=== PATIENT | male | born 1965 ===

== ENCOUNTER 2018-09-07 16:44 | Inpatient (IN) | payer OTHER ==
[2018-09-07] MEDS: HumaLOG SUB-Q SCH (22:11)
--- NOTE | 2018-09-07 23:08 | Consultation ---
History of Present Illness - Reason for Consult Consult date: 09/07/18 - History of Present Illness 53 year old man with history of hypertension, diabetes, CAD, CHF, CVA, hyperlipidemia , gout is being evaluated for medical management. He is admitted for SI Review of systems Constitutional: no weight loss, chills, fever Ears, eyes, nose, mouth and throat: no nasal congestion, no nasal discharge, no sinus pressure, no vision change, no red eye. Neck: No neck pain or rigidity. Cardiovascular: no palpitations, chest pain Respiratory: no cough, shortness of breath Gastrointestinal: no hematochezia, abdominal pain Genitourinary : no frequency , no hematuria Musculoskeletal: no joint swelling or muscle ache Integumentary: no rash, no pruritis Neurological: no parathesias, no focal weakness Endocrine: no cold or heat intolerance, no polyuria or polydipsia Hematologic/Lymphatic: no easy bruising, no easy bleeding, no gland swelling Allergic/Immunologic: no urticaria, no angioedema. PAST MEDICAL HISTORY:hypertension, diabetes, CAD, CHF, CVA, hyperlipidemia , gout, CKD PAST SURGICAL HISTORY: AICD SOCIAL HISTORY: Denies alcohol, drugs, tobacco FAMILY HISTORY: Hypertension Medications and Allergies Allergies Allergy/AdvReac Type Severity Reaction Status Date / Time No Known Allergies Allergy Unverified 09/07/18 17:01 Home Medications Medication Instructions Recorded Confirmed Last Taken Type Allopurinol [Zyloprim] 0.5 mg PO QPM 09/07/18 09/07/18 Unknown History Furosemide [Lasix TAB] 40 mg PO DAILY 09/07/18 09/07/18 Unknown History Glimepiride [Amaryl] 4 mg PO DAILY 09/07/18 09/07/18 Unknown History Lisinopril [Zestril TAB] 10 mg PO DAILY 09/07/18 09/07/18 Unknown History Metoclopramide [Reglan TAB] 5 mg pe PO QID 09/07/18 09/07/18 Unknown History Metoprolol Xl [Metoprolol 25 mg PO DAILY 09/07/18 09/07/18 Unknown History SUCCINATE ER TAB] Simvastatin 40 mg PO DAILY 09/07/18 09/07/18 Unknown History Warfarin 5 mg PO DAILY 09/07/18 09/07/18 Unknown History busPIRone 7.5 mg PO BID 09/07/18 09/07/18 Unknown History metFORMIN 500 mg PO BID 09/07/18 09/07/18 Unknown History metOLazone [Metolazone] 10 mg pe PO DAILY 09/07/18 09/07/18 Unknown History Exam - Physical Exam Narrative exam: General Apperance: The patient lying in bed, breathing comfortable HEENT: Normocephalic, atraumatic. Pupils equally round and reactive to light, EOMI, no sclericterus or JVD or thyromegaly or nodule. , no carotid bruit, mucous membranes moist, no exudate or erythema Heart: S1-S2, regular is rhythm Lungs: Clear to auscultation bilaterally, breathing comfortable Abdomen: Positive bowel sounds, soft, nontender, nondistended, no organomegaly Extremities: No edema cyanosis clubbing Skin: no rash, nodule, warm and dry Neuro: cranial nerves 2-12 intact, speech is fluent, motor/sensory intact Results - Labs CBC & Chem 7: 09/07/18 23:41 09/07/18 23:41 Labs: Abnormal lab results 09/07/18 Range/Units 21:37 POC Glucose 256 H (70-105) Assessment and Plan Assessment hypertension diabetes CAD CHF, stable CKD CVA hyperlipidemia gout Plan Continue appropiate medications Check fingersticks, start sliding scale Medicaions need to be reconciled Addendum Patient with relative hypotension, hold antihypertensives
[2018-09-07] MEDS ORDERED: D50W (25GM) Syringe IV PRN (23:16)
[2018-09-08 00:13] LABS: Basophils % (Auto) 0.4 % (0.0-1.8); Eosinophils % (Auto) 0.8 % (0.0-4.3); Hematocrit 41.4 % (35.5-45.6); Lymphocytes # (Auto) 0.8 K/mm3 (1.2-5.4); Lymphocytes % (Auto) 12.9 % (13.4-35.0); Mean Corpuscular HGB Conc 32 % (32-34); Mean Corpuscular Volume 75 fl (84-94); Monocytes # (Auto) 0.5 K/mm3 (0.0-0.8); Monocytes % (Auto) 8.1 % (0.0-7.3); Platelet Count 155 K/mm3 (140-440); Red Blood Count 5.53 M/mm3 (3.65-5.03)
[2018-09-08 00:20] LABS: INR 1.62 (0.87-1.13)
[2018-09-08 00:21] LABS: Partial Thromboplastin Time 29.3 Sec. (24.2-36.6)
[2018-09-08 00:40] LABS: Red Cell Distribution Width 24.3 % (13.2-15.2)
[2018-09-08] MEDS ORDERED: KIONEX PO ONE (01:33)
[2018-09-08 07:54] LABS: Calcium 10.2 mg/dL (8.4-10.2)
--- NOTE | 2018-09-08 08:28 | History and Physical Report ---
GP History & Physical - History of Present Illness Date of admission: 09/07/18 Date of Examination: 09/08/18 Reason for Admission: Danger to self, Severe anxiety/depression Chief Complaint: I am losing my mind. History of Present Illness: The patient is 53 year old disabled man with history of hypertension, diabetes, CAD, CHF, CVA, HLD, diabetic retinopathy and vision loss. He present with severely depressed mood and suicidal thoughts. In my interview with the patient he reports that he is losing his mind, losing his vision, stressed by multiple medical problems including strokes, heart rafa cks and vision loss. He reports entertaining suicide thoughts. He has decreased energy, interests, sleep and appetite. He denies hallucinations, HI or paranoia. Legal Status: Voluntary Patient Problems: Current Active Problems MDD (major depressive disorder), single episode, severe , no psychosis (Acute) Reaction to Hospitalization: Accepting Substance History - Substance History Drug Use: none Hx Tobacco Use: No Alcohol Use: No Past psychiatric history - Past Medical History Past Medical History: acute CO, CAD, diabetes, hypertension, hyperlipidemia, stroke - past Psychiatric treatment and history psychiatric treatment history: No past psych history - Social History Social history: (lives with a friend, no chilodhood abuse, completed high school, disabled, no legal problems and no access to guns) Review of Systems All systems: negative Psychiatric: memory loss, insomnia, change in appetite, suicidal ideation, depression, anhedonia Results - Results Labs/Vitals: Laboratory Last Values WBC 5.9 K/mm3 (4.5-11.0) 09/07/18 23:41 RBC 5.53 M/mm3 (3.65-5.03) H 09/07/18 23:41 Hgb 13.0 gm/dl (11.8-15.2) 09/07/18 23:41 Hct 41.4 % (35.5-45.6) 09/07/18 23:41 MCV 75 fl (84-94) L 09/07/18 23:41 MCH 24 pg (28-32) L 09/07/18 23:41 MCHC 32 % (32-34) 09/07/18 23:41 RDW 24.3 % (13.2-15.2) H 09/07/18 23:41 Plt Count 155 K/mm3 (140-440) 09/07/18 23:41 Lymph % (Auto) 12.9 % (13.4-35.0) L 09/07/18 23:41 Noble % (Auto) 8.1 % (0.0-7.3) H 09/07/18 23:41 Eos % (Auto) 0.8 % (0.0-4.3) 09/07/18 23:41 Baso % (Auto) 0.4 % (0.0-1.8) 09/07/18 23:41 Lymph # 0.8 K/mm3 (1.2-5.4) L 09/07/18 23:41 Noble # 0.5 K/mm3 (0.0-0.8) 09/07/18 23:41 Eos # 0.0 K/mm3 (0.0-0.4) 09/07/18 23:41 Baso # 0.0 K/mm3 (0.0-0.1) 09/07/18 23:41 Seg Neutrophils % 77.8 % (40.0-70.0) H 09/07/18 23:41 Seg Neutrophils # 4.6 K/mm3 (1.8-7.7) 09/07/18 23:41 PT 22.3 Sec. (12.2-14.9) H 09/08/18 07:25 INR 2.00 (0.87-1.13) H 09/08/18 07:25 APTT 32.0 Sec. (24.2-36.6) 09/08/18 07:25 Sodium 142 mmol/L (137-145) 09/08/18 07:25 Potassium 4.9 mmol/L (3.6-5.0) 09/08/18 07:25 Chloride 98.6 mmol/L (98-107) 09/08/18 07:25 Carbon Dioxide 29 mmol/L (22-30) 09/08/18 07:25 19 mmol/L 09/08/18 07:25 BUN 80 mg/dL (9-20) H 09/08/18 07:25 3.1 mg/dL (0.8-1.5) H 09/08/18 07:25 Estimated GFR 21 ml/min 09/08/18 07:25 26 % 09/08/18 07:25 Glucose 181 mg/dL (75-100) H 09/08/18 07:25 POC Glucose 182 (70-105) H 09/08/18 07:34 Calcium 10.2 mg/dL (8.4-10.2) 09/08/18 07:25 Last Vital Signs Temp 97.8 F 09/07/18 22:00 Pulse 53 L 09/07/18 22:00 Resp 18 09/07/18 22:00 BP 99/51 09/07/18 22:00 Pulse Ox 98 09/07/18 22:00 Physical Examination - Constitutional Vitals: Vital Signs Temp Pulse Resp BP Pulse Ox 97.8 F 53 L 18 99/51 98 09/07/18 22:00 09/07/18 22:00 09/07/18 22:00 09/07/18 22:00 09/07/18 22:00 Temperature -Last 24 Hours Temperature 97.8 F Temperature 97.8 F General appearance: Present: no acute distress, disheveled - EENT Eyes: Present: PERRL, EOM intact ENT: hearing intact, clear oral mucosa - Neck Neck: Present: supple, normal ROM - Respiratory Respiratory effort: normal Mental Status Exam - Vital signs Last Vital Signs Temp 97.8 F 09/07/18 22:00 Pulse 53 L 09/07/18 22:00 Resp 18 09/07/18 22:00 BP 99/51 09/07/18 22:00 Pulse Ox 98 09/07/18 22:00 - Exam Orientation: time, place, person Affect: depressed Mood: hopeless, congruent with affect Thought Process: Intact Perceptions: none Speech: slow Concentration: focused Motor activity: lethargic Level of consciousness: alert Memory: Intact Sleep Symptoms: Insomnia Appetite: decreased Interaction: cooperative Assessment and Plan - Psychiatric problem (1) MDD (major depressive disorder), single episode, severe , no psychosis Current Visit: Yes Status: Acute plan to address problem: Patient will be admitted for inpatient psychiatric evaluation, medication adjustment and close monitoring The patient's behavior, mood, sleep and appetite will be closely monitored. Patient will be enrolled in individual and group therapeutic sessions and enc ouraged to attend. Patient will be provided with a safe and structured environment. Patient's physical health needs will be addressed by the Hospitalist. Social Assessment will be completed and the Door Trimmer will work with patient and family to ensure a suitable and safe disposition Medication adjustment will be made as clinically indicated Will start Citalopram 10mg qd for depression and Remeron 15mg qhs for depression, sleep and appetite The patient agreed on the treatment plan, understood the risk, benefit, alternative treatment, potential consequence of no treatment, and gave informed consent. Physician Certification - Certification Statement Physician Certification Statement: This is an acknowledgement statement that LAMONTE SMITH is a 53 year old M who requires inpatient psychiatric admission for treatment which could reasonably be expected to improve the patient's condition for Estimated period of time patient will need to remain in the hospital: [ ] Plan for post-hospital care: [ ]
[2018-09-08] MEDS ORDERED: LASIX PO SCH (10:00)
[2018-09-08] MEDS ORDERED: NON-FORMULARY (Metformin 500 MG) PO SCH (10:00)
[2018-09-08] MEDS ORDERED: METOLAZONE 10 MG PO SCH (10:00)
[2018-09-08] MEDS: HumaLOG SUB-Q SCH ×4 (11:15→21:36)
[2018-09-08] MEDS: REGLAN PO SCH ×4 (11:16→21:23)
[2018-09-08] MEDS: AMARYL PO SCH (11:16)
[2018-09-08] MEDS: BUSPAR PO SCH ×2 (11:18→21:22)
[2018-09-08] MEDS: ZESTRIL PO SCH (11:39)
[2018-09-08] MEDS: TOPROL XL PO SCH (12:05)
[2018-09-08] MEDS: ZYLOPRIM PO SCH (17:46)
[2018-09-08] MEDS: COUMADIN PO SCH (17:54)
[2018-09-08] MEDS: LASIX PO SCH (17:54)
[2018-09-08] MEDS: celeXA PO SCH (17:57)
[2018-09-08] MEDS: PRAVACHOL PO SCH (21:23)
[2018-09-08] MEDS: REMERON PO SCH (21:24)
[2018-09-09] MEDS: LASIX PO SCH (05:28)
[2018-09-09 05:46] LABS: INR 2.4 (0.87-1.13)
[2018-09-09 05:47] LABS: Bilirubin,Urine NEG (Negative); Blood,Urine NEG (Negative); Color,Urine Yellow (Yellow); Hyaline Casts,Urine 52 /LPF; Mucus,Urine FEW /HPF; Protein,Urine <15 mg/dL mg/dL (Negative); Urobilinogen,Urine < 2.0 mg/dL (<2.0)
[2018-09-09 06:14] LABS: Chol/HDL Ratio 2.14 %
--- NOTE | 2018-09-09 07:18 | Progress Note ---
Subjective Date of service: 09/09/18 Principal diagnosis: MDD Recurrent Severe Subjective Comment: Patient is depressed, sluggish, withdrawn and not eating well. Multiple medication changes were made yesterday. He is compliant with his medications. No reported or observed side effects. BUN and Cr elevated per yesterday's labs. Will repeat BMP this morning. Objective - Criteria for Continued Treatment Criteria for Continued Treatment: Improving Level of Functioning, Reducing Isolative Behaviors, Stablizing Level of Functioning, Improving Emotional/Socia - Mental Status Mental Status: Alert - Objective Observation Participation Level: Minimal Assessment and Plan - Patient Problems (1) MDD (major depressive disorder), single episode, severe , no psychosis Current Visit: Yes Status: Acute Plan to address problem: Patient will be admitted for inpatient psychiatric evaluation, medication adjustment and close monitoring The patient's behavior, mood, sleep and appetite will be closely monitored. Patient will be enrolled in individual and group therapeutic sessions and encouraged to attend. Patient will be provided with a safe and structured environment. Patient's physical health needs will be addressed by the Hospitalist. Social Assessment will be completed and the Solar Field Service Technician will work with patient and family to ensure a suitable and safe disposition Medication adjustment will be made as clinically indicated Continue Citalopram 10mg qd for depression and Remeron 15mg qhs for depression, sleep and appetite (09/08) The patient agreed on the treatment plan, understood the risk, benefit, alternative treatment, potential consequence of no treatment, and gave informed consent.
[2018-09-09] MEDS: HumaLOG SUB-Q SCH ×4 (07:36→21:44)
[2018-09-09 07:50] LABS: Basophils # (Auto) 0.1 K/mm3 (0.0-0.1); Basophils % (Auto) 1.4 % (0.0-1.8); Eosinophils # (Auto) 0.1 K/mm3 (0.0-0.4); Eosinophils % (Auto) 1.2 % (0.0-4.3); Hematocrit 37.8 % (35.5-45.6); Hemoglobin 12.1 gm/dl (11.8-15.2); Lymphocytes % (Auto) 17.8 % (13.4-35.0); Mean Corpuscular HGB Conc 32 % (32-34); Mean Corpuscular Volume 74 fl (84-94); Monocytes # (Auto) 0.4 K/mm3 (0.0-0.8); Monocytes % (Auto) 7.8 % (0.0-7.3); Platelet Count 135 K/mm3 (140-440)
[2018-09-09 08:08] LABS: Red Cell Distribution Width 23.4 % (13.2-15.2)
[2018-09-09 08:10] LABS: Calcium 9.5 mg/dL (8.4-10.2)
[2018-09-09] MEDS: AMARYL PO SCH (08:57)
[2018-09-09] MEDS: TOPROL XL PO SCH (09:31)
[2018-09-09] MEDS: celeXA PO SCH (09:31)
[2018-09-09] MEDS: REGLAN PO SCH ×4 (09:32→21:42)
[2018-09-09] MEDS: ZESTRIL PO SCH (09:32)
[2018-09-09] MEDS: BUSPAR PO SCH ×2 (09:33→21:43)
[2018-09-09] MEDS: ZAROXOLYN PO SCH (16:46)
[2018-09-09] MEDS: ZYLOPRIM PO SCH (17:31)
[2018-09-09] MEDS: REMERON PO SCH (21:42)
[2018-09-09] MEDS: PRAVACHOL PO SCH (21:46)
[2018-09-10] MEDS: LASIX PO SCH (05:41)
--- NOTE | 2018-09-10 07:55 | Progress Note ---
Subjective Date of service: 09/10/18 Principal diagnosis: MDD Recurrent Severe Subjective Comment: Patient is depressed, sluggish, withdrawn and not eating well. Multiple medication changes were made yesterday. He is compliant with his medications. No reported or observed side effects. Objective - Criteria for Continued Treatment Criteria for Continued Treatment: Improving Level of Functioning, Reducing Isolative Behaviors, Stablizing Level of Functioning, Improving Emotional/Socia - Mental Status Mental Status: Alert - Objective Observation Participation Level: Minimal Assessment and Plan - Patient Problems (1) MDD (major depressive disorder), single episode, severe , no psychosis Current Visit: Yes Status: Acute Plan to address problem: Patient will be admitted for inpatient psychiatric evaluation, medication adjustment and close monitoring The patient's behavior, mood, sleep and appetite will be closely monitored. Patient will be enrolled in individual and group therapeutic sessions and encouraged to attend. Patient will be provided with a safe and structured environment. Patient's physical health needs will be addressed by the Hospitalist. Social Assessment will be completed and the Shell Maker Lockstitch will work with patient and family to ensure a suitable and safe disposition Medication adjustment will be made as clinically indicated Continue Citalopram 10mg qd for depression and Remeron 15mg qhs for depression, sleep and appetite (09/08) The patient agreed on the treatment plan, understood the risk, benefit, alternative treatment, potential consequence of no treatment, and gave informed consent.
[2018-09-10] MEDS: COUMADIN PO SCH ×2 (08:47→17:35)
[2018-09-10] MEDS: HumaLOG SUB-Q SCH ×4 (08:47→21:44)
[2018-09-10] MEDS: REGLAN PO SCH ×4 (09:27→21:43)
[2018-09-10] MEDS: celeXA PO SCH (09:27)
[2018-09-10] MEDS: BUSPAR PO SCH ×2 (09:28→21:43)
[2018-09-10] MEDS: AMARYL PO SCH (09:29)
[2018-09-10] MEDS: ZAROXOLYN PO SCH (10:10)
[2018-09-10] MEDS: ZESTRIL PO SCH (10:10)
[2018-09-10] MEDS: TOPROL XL PO SCH (10:10)
[2018-09-10] MEDS: GLUCOPHAGE PO SCH ×2 (10:23→17:35)
[2018-09-10 10:34] LABS: INR 2.13 (0.87-1.13)
--- NOTE | 2018-09-10 11:27 | Progress Note ---
Assessment and Plan Assessment and plan: ? Acute on Chronic Renal Failure. Unfortunately, we do not have a baseline Cr to compare. Start IVF. Check renal US and U/A. Nephrology consult. Hypertension. Cont meds Diabetes Mellitus type 2. Accuchecks and SSRI CAD. stable CHF, stable CVA. hyperlipidemia. gout History Interval history: Dr. De La Torre performed consult on admission. F/U for renal failure Hospitalist Physical - Constitutional Vitals: Temp Pulse Resp BP Pulse Ox 97.3 F L 44 L 18 93/63 99 09/10/18 08:24 09/10/18 10:10 09/10/18 08:24 09/10/18 10:10 09/10/18 08:24 General appearance: Present: no acute distress, disheveled - EENT Eyes: Present: PERRL, EOM intact ENT: hearing intact, clear oral mucosa, dentition normal - Neck Neck: Present: supple, normal ROM - Respiratory Respiratory effort: normal Respiratory: bilateral: CTA - Cardiovascular Rhythm: regular Heart Sounds: Present: S1 & S2. Absent: gallop, rub - Extremities Extremities: no ischemia, No edema, Full ROM - Abdominal General gastrointestinal: soft, non-tender, non-distended, normal bowel sounds - Integumentary Integumentary: Present: clear, warm, dry - Neurologic Neurologic: CNII-XII intact, moves all extremities Results - Labs CBC & Chem 7: 09/09/18 07:36 09/09/18 07:32 Labs: Laboratory Last Values WBC 5.6 K/mm3 (4.5-11.0) 09/09/18 07:36 RBC 5.10 M/mm3 (3.65-5.03) H 09/09/18 07:36 Hgb 12.1 gm/dl (11.8-15.2) 09/09/18 07:36 Hct 37.8 % (35.5-45.6) 09/09/18 07:36 MCV 74 fl (84-94) L 09/09/18 07:36 MCH 24 pg (28-32) L 09/09/18 07:36 MCHC 32 % (32-34) 09/09/18 07:36 RDW 23.4 % (13.2-15.2) H 09/09/18 07:36 Plt Count 135 K/mm3 (140-440) L 09/09/18 07:36 Lymph % (Auto) 17.8 % (13.4-35.0) 09/09/18 07:36 Marshall % (Auto) 7.8 % (0.0-7.3) H 09/09/18 07:36 Eos % (Auto) 1.2 % (0.0-4.3) 09/09/18 07:36 Baso % (Auto) 1.4 % (0.0-1.8) 09/09/18 07:36 Lymph # 1.0 K/mm3 (1.2-5.4) L 09/09/18 07:36 Marshall # 0.4 K/mm3 (0.0-0.8) 09/09/18 07:36 Eos # 0.1 K/mm3 (0.0-0.4) 09/09/18 07:36 Baso # 0.1 K/mm3 (0.0-0.1) 09/09/18 07:36 Seg Neutrophils % 71.8 % (40.0-70.0) H 09/09/18 07:36 Seg Neutrophils # 4.0 K/mm3 (1.8-7.7) 09/09/18 07:36 PT 23.4 Sec. (12.2-14.9) H 09/10/18 09:39 INR 2.13 (0.87-1.13) H 09/10/18 09:39 APTT 32.0 Sec. (24.2-36.6) 09/08/18 07:25 Sodium 140 mmol/L (137-145) 09/09/18 07:32 Potassium 4.4 mmol/L (3.6-5.0) 09/09/18 07:32 Chloride 97.2 mmol/L (98-107) L 09/09/18 07:32 Carbon Dioxide 31 mmol/L (22-30) H 09/09/18 07:32 16 mmol/L 09/09/18 07:32 BUN 88 mg/dL (9-20) H 09/09/18 07:32 2.9 mg/dL (0.8-1.5) H 09/09/18 07:32 Estimated GFR 23 ml/min 09/09/18 07:32 30 % 09/09/18 07:32 Glucose 118 mg/dL (75-100) H 09/09/18 07:32 POC Glucose 124 (70-105) H 09/10/18 07:53 7.3 % (4-6) H 09/09/18 05:03 Calcium 9.5 mg/dL (8.4-10.2) 09/09/18 07:32 0.30 mg/dL (0.1-1.2) 09/09/18 07:32 AST 20 units/L (5-40) 09/09/18 07:32 ALT 25 units/L (7-56) 09/09/18 07:32 85 units/L (35-129) 09/09/18 07:32 6.5 g/dL (6.3-8.2) 09/09/18 07:32 4.0 g/dL (3.9-5) 09/09/18 07:32 1.6 % 09/09/18 07:32 Triglycerides 65 mg/dL (2-149) 09/09/18 05:03 Cholesterol 133 mg/dL (50-199) 09/09/18 05:03 62 mg/dL (50-130) 09/09/18 05:03 62 mg/dL (40-59) H 09/09/18 05:03 2.14 % 09/09/18 05:03 Yellow (Yellow) 09/09/18 05:00 Clear (Clear) 09/09/18 05:00 5.0 (5.0-7.0) 09/09/18 05:00 Ur Specific Jackson 1.013 (1.003-1.030) 09/09/18 05:00 <15 mg/dl mg/dL (Negative) 09/09/18 05:00 50 mg/dL (Negative) 09/09/18 05:00 Neg mg/dL (Negative) 09/09/18 05:00 Neg (Negative) 09/09/18 05:00 Neg (Negative) 09/09/18 05:00 Neg (Negative) 09/09/18 05:00 < 2.0 mg/dL (<2.0) 09/09/18 05:00 Ur Leukocyte Esterase Neg (Negative) 09/09/18 05:00 1.0 /HPF (0.0-6.0) 09/09/18 05:00 3.0 /HPF (0.0-6.0) 09/09/18 05:00 U Epithel Cells (Auto) < 1.0 /HPF (0-13.0) 09/09/18 05:00 Hyaline Casts 52 /LPF 09/09/18 05:00 Few /HPF 09/09/18 05:00 Active Medications - Current Medications Current Medications: Generic Name Dose Route Start Last Admin Trade Name Freq PRN Reason Stop Dose Admin Allopurinol 150 mg 09/08/18 18:00 09/09/18 17:31 Zyloprim PO 150 mg QPM DE Administration Buspirone HCl 7.5 mg 09/08/18 10:00 09/10/18 09:28 Buspar PO 7.5 mg BID DE Administration Citalopram Hydrobromide 10 mg 09/08/18 18:00 09/10/18 09:27 Celexa PO 10 mg QDAY DE Administration Dextrose 50 ml 09/07/18 23:16 D50w (25gm) Syringe IV PRN PRN Hypoglycemia Furosemide 40 mg 09/08/18 11:00 09/10/18 05:41 Lasix PO 40 mg DAILY@0600 DE Administration Glimepiride 4 mg 09/08/18 08:00 09/10/18 09:29 Amaryl PO 4 mg QAMDIAB DE Administration Insulin Human Lispro 0 unit 09/07/18 23:59 09/10/18 08:47 Humalog SUB-Q Not Given ACHS [facility] Protocol Lisinopril 10 mg 09/08/18 11:00 09/10/18 10:10 Zestril PO Not Given DAILY [facility] Metformin HCl 500 mg 09/10/18 11:00 09/10/18 10:23 Glucophage PO 500 mg BIDDIAB DE Administration Metoclopramide HCl 5 mg 09/08/18 10:00 09/10/18 09:27 Reglan PO 5 mg QID DE Administration Metolazone 10 mg 09/09/18 16:00 09/10/18 10:10 Zaroxolyn PO Not Given QDAY [facility] Metoprolol Succinate 25 mg 09/08/18 11:00 09/10/18 10:10 Toprol Xl PO Not Given DAILY [facility] Mirtazapine 15 mg 09/08/18 22:00 09/09/18 21:42 Remeron PO 15 mg QHS [facility] Administration Pravastatin Sodium 80 mg 09/08/18 22:00 09/09/18 21:46 Pravachol PO 80 mg QHS [facility] Administration Warfarin Sodium 5 mg 09/08/18 17:00 09/10/18 08:47 Coumadin PO Not Given DAILY@1700 [facility] Nutrition/Malnutrition Assess - Dietary Evaluation Nutrition/Malnutrition Findings: Nutrition Notes Start: 09/08/18 1 6:38 Freq: Status: Active Protocol: Document 09/08/18 16:38 RM (Rec: 09/08/18 16:45 RM [id number]) Nutrition Notes Initial or Follow up Assessment Current Diagnosis Coronary Artery Disease, Hypertension,Heart Failure, Stroke,Hyperlipidemia Current Diet Cardiac Labs/Tests Reviewed Pertinent Medications Reviewed Height 5 ft 10 in Weight 81.36 kg [place] Body Weight (kg) 75.45 BMI 25.7 Subjective/Other Information Screened for Coumadin/Vit K diet education. Pt already familiar with diet education. Stated that his appetite is poor and that he eats <50% of his meals d/t constipation but agreed to try Ensure Enlive. Percent of energy/protein needs met: 39%/41% Burn Absent Trauma Absent #1 Nutrition Diagnosis Inadequate oral intake Etiology constipation As Evidenced by Signs and Symptoms pt statement that he eats <50% of his meals Is patient on ventilator? No Is Patient Ambulatory and/or Out of Bed Yes REE-([facility]-ambulatory/OOB) [ [id number] [id number]] Calculation Used for Recommendations [facility] Additional Notes Protein Needs 81-102g (1-1.25g /kg) Fluid Needs: 1 ml/kcal Nutrition Intervention Change Diet Order: Continue current Add Supplement/Snack (indicate name/kcal Ensure Enlive [place], /protein ) Vanilla 1 daily Provides kCal: 350 Provides Protein (gm) 20 Goal #1 Meet at least 75% of calorie and protein needs via PO and ONS intakes Anticipated Discharge Needs: Cardiac diet Follow-Up By: 09/13/18 Additional Comments Follow for PO and ONS intakes
--- NOTE | 2018-09-10 17:04 | Consultation ---
History of Present Illness - Reason for Consult Consult date: 09/10/18 acute renal failure, chronic renal failure, hyperkalemia - History of Present Illness The patient is 53 YO male with history significant for Hypertension, DM type 2, HLD, CAD s/p stent, Systolic CHF with EF 10-15% and severe LV hypokinesis, CVA, CKD stage 3, Diabetic retinopathy and Major depression who was discharged from [facility] on 09/07/18 to inpatient psychiatry unit for treatment of suicidal ideation. During this recent admission his creatinine average about 2.5. His appetite is slightly decreased but eating ok. He denies any N, V, D, abd pain, MORIN, dizziness, cp, cough, sob, leg swelling, dysuria, hematuria, fever or chills. Creatinine level is 2.9 and BUN 88. Nephrology was consulted for further evaluation. Past History Past Medical History: acute MA, CAD, diabetes, heart failure, hypertension, hyperlipidemia, renal failure, stroke Social history: (lives with a friend, no chilodhood abuse, completed high school, disabled, no legal problems and no access to guns) Medications and Allergies Allergies Allergy/AdvReac Type Severity Reaction Status Date / Time No Known Allergies Allergy Unverified 09/07/18 17:01 Home Medications Medication Instructions Recorded Confirmed Last Taken Type Allopurinol [Zyloprim] 0.5 mg PO QPM 09/07/18 09/07/18 Unknown History Furosemide [Lasix TAB] 40 mg PO DAILY 09/07/18 09/07/18 Unknown History Glimepiride [Amaryl] 4 mg PO DAILY 09/07/18 09/07/18 Unknown History Lisinopril [Zestril TAB] 10 mg PO DAILY 09/07/18 09/07/18 Unknown History Metoclopramide [Reglan TAB] 5 mg pe PO QID 09/07/18 09/07/18 Unknown History Metoprolol Xl [Metoprolol 25 mg PO DAILY 09/07/18 09/07/18 Unknown History SUCCINATE ER TAB] Simvastatin 40 mg PO DAILY 09/07/18 09/07/18 Unknown History Warfarin 5 mg PO DAILY 09/07/18 09/07/18 Unknown History busPIRone 7.5 mg PO BID 09/07/18 09/07/18 Unknown History metFORMIN 500 mg PO BID 09/07/18 09/07/18 Unknown History metOLazone [Metolazone] 10 mg pe PO DAILY 09/07/18 09/07/18 Unknown History Active Meds: Active Medications Allopurinol (Zyloprim) 150 mg PO QPM [facility] Last Admin: 09/09/18 17:31 Dose: 150 mg Documented by: Buspirone HCl (Buspar) 7.5 mg PO BID [facility] Last Admin: 09/10/18 09:28 Dose: 7.5 mg Documented by: Citalopram Hydrobromide (Celexa) 10 mg PO QDAY [facility] Last Admin: 09/10/18 09:27 Dose: 10 mg Documented by: Dextrose (D50w (25gm) Syringe) 50 ml IV PRN PRN PRN Reason: Hypoglycemia Furosemide (Lasix) 40 mg PO DAILY@0600 [facility] Last Admin: 09/10/18 05:41 Dose: 40 mg Documented by: Glimepiride (Amaryl) 4 mg PO QAMDIAB [facility] Last Admin: 09/10/18 09:29 Dose: 4 mg Documented by: Insulin Human Lispro (Humalog) 0 unit SUB-Q ACHS [facility]; Protocol Last Admin: 09/10/18 11:51 Dose: 10 unit Documented by: Lisinopril (Zestril) 10 mg PO DAILY [facility] Last Admin: 09/10/18 10:10 Dose: Not Given Documented by: Metformin HCl (Glucophage) 500 mg PO BIDDIAB [facility] Last Admin: 09/10/18 10:23 Dose: 500 mg Documented by: Metoclopramide HCl (Reglan) 5 mg PO QID [facility] Last Admin: 09/10/18 14:50 Dose: 5 mg Documented by: Metolazone (Zaroxolyn) 10 mg PO QDAY [facility] Last Admin: 09/10/18 10:10 Dose: Not Given Documented by: Metoprolol Succinate (Toprol Xl) 25 mg PO DAILY [facility] Last Admin: 09/10/18 10:10 Dose: Not Given Documented by: Mirtazapine (Remeron) 15 mg PO QHS [facility] Last Admin: 09/09/18 21:42 Dose: 15 mg Documented by: Pravastatin Sodium (Pravachol) 80 mg PO QHS [facility] Last Admin: 09/09/18 21:46 Dose: 80 mg Documented by: Warfarin Sodium (Coumadin) 5 mg PO DAILY@1700 [place] Last Admin: 09/10/18 08:47 Dose: Not Given Documented by: Review of Systems Constitutional: fatigue, poor appetite, no weight loss, no weight gain, no fever, no chills, no anorexia, no weakness Cardiovascular: no chest pain, no orthopnea, no edema, no syncope, no lightheadedness, no shortness of breath, no paroxysmal nocturnal dyspnea, no leg edema Respiratory: no cough, no cough with sputum, no hemoptysis, no shortness of breath, no dyspnea on exertion, no home oxygen Gastrointestinal: no abdominal pain, no nausea, no vomiting, no diarrhea Genitourinary Male: no dysuria, no hematuria Musculoskeletal: no morning stiffness, no muscle weakness, no muscle cramps Integumentary: no rash, no wounds, no jaundice Neurological: no head injury, no seizures, no syncope, no tic, no aphasia Psychiatric: anxiety, suicidal ideation, depression, hopelessness Exam - Vital Signs Vital signs: Vital Signs Temp Pulse Resp BP Pulse Ox 97.8 F 53 L 18 99/51 98 09/07/18 20:35 09/07/18 20:35 09/07/18 20:35 09/07/18 20:35 09/07/18 20:35 - General Appearance General appearance: well-developed, appears stated age, other (flat affect, poor eye contact, no distress) EENT: ATNC, PERRL, hearing intact Neck: Present: neck supple, trachea midline Respiratory: Clear to Ascultation Heart: regular, S1S2, no murmurs Gastrointestinal: Present: normoactive bowel sounds. Absent: tenderness, distended Integumentary: no rash, warm and dry Neurologic: no focal deficit, no asterixis, alert and oriented x3 Musculoskeletal: Present: other (no edema) Psychiatric: cooperative Results - Lab Results 09/09/18 07:36 09/09/18 07:32 Most recent lab results Calcium 9.5 mg/dL (8.4-10.2) 09/09/18 07:32 - Image Kidney/bladder ultrasound: other Assessment and Plan 1. Acute kidney injury: CHANDAN superimposed on CKD in the setting of hypotension. Patient was recently evaluated for Cardio-renal syndrome. Currently he is not fluid overloaded and if anything he appears to be volume depleted. Hold diuretics and Lisinopril. Recent Renal US was negative for hydro. Monitor renal function. Renal prognosis is guarded. Avoid nephrotoxic agents. Meds dosage based on GFR. 2. FEN: Hyperkalemia, improved. Monitor lytes. 3. Systolic CHF: Appears compensated. 4. Depression with suicidal ideation. Inpatient psychiatry unit. 5. DM type 2.
[2018-09-10] MEDS: ZYLOPRIM PO SCH (17:35)
[2018-09-10] MEDS: REMERON PO SCH (21:43)
[2018-09-10] MEDS: PRAVACHOL PO SCH (21:44)
--- NOTE | 2018-09-11 08:45 | Progress Note ---
Assessment and Plan 1. Acute kidney injury: CHANDAN superimposed on CKD in the setting of hypotension. Patient was recently evaluated for Cardio-renal syndrome. Currently he is not fluid overloaded and if anything he appears to be volume depleted. Hold diuretics and Lisinopril. Recent Renal US was negative for hydro. BUN continue increasing. Monitor renal function. Renal prognosis is guarded. Avoid nephrotoxic agents. Meds dosage based on GFR. 2. FEN: Hyperkalemia, improved. Monitor lytes. 3. Systolic CHF: Appears compensated. Metoprolol was stopped due to symptomatic bradycardia. 4. Hypotension: Started on Midodrine. 5. Depression with suicidal ideation. Inpatient psychiatry unit. 6. DM type 2. Subjective Date of service: 09/11/18 Principal diagnosis: MDD Recurrent Severe Interval history: Patient was seen and examined at the bedside. No new complaint. Objective - General Appearance General appearance: well-developed, appears stated age, other (no distress) EENT: ATNC, PERRL, mucous membranes moist, hearing intact, vision intact Neck: supple Respiratory: Present: Clear to Ascultation Cardiology: regular, S1S2, no murmurs Gastrointestinal: normoactive bowel sounds, no tenderness, no distended Integumentary: no rash, warm and dry Neurologic: no focal deficit, no asterixis, alert and oriented x3 Musculoskeletal: other (no edema) Psychiatric: depressed - Lab 09/09/18 07:36 09/11/18 08:50 Most recent lab results Calcium 9.5 mg/dL (8.4-10.2) 09/09/18 07:32 Medications & Allergies - Medications Allergies/Adverse Reactions: Allergies No Known Allergies Allergy (Unverified 09/07/18 17:01) Home Medications: Home Medications Medication Instructions Recorded Confirmed Last Taken Type Allopurinol [Zyloprim] 0.5 mg PO QPM 09/07/18 09/07/18 Unknown History Furosemide [Lasix TAB] 40 mg PO DAILY 09/07/18 09/07/18 Unknown History Glimepiride [Amaryl] 4 mg PO DAILY 09/07/18 09/07/18 Unknown History Lisinopril [Zestril TAB] 10 mg PO DAILY 09/07/18 09/07/18 Unknown History Metoclopramide [Reglan TAB] 5 mg pe PO QID 09/07/18 09/07/18 Unknown History Metoprolol Xl [Metoprolol 25 mg PO DAILY 09/07/18 09/07/18 Unknown History SUCCINATE ER TAB] Simvastatin 40 mg PO DAILY 09/07/18 09/07/18 Unknown History Warfarin 5 mg PO DAILY 09/07/18 09/07/18 Unknown History busPIRone 7.5 mg PO BID 09/07/18 09/07/18 Unknown History metFORMIN 500 mg PO BID 09/07/18 09/07/18 Unknown History metOLazone [Metolazone] 10 mg pe PO DAILY 09/07/18 09/07/18 Unknown History Active Medications: Generic Name Dose Route Start Last Admin Trade Name Freq PRN Reason Stop Dose Admin Allopurinol 150 mg 09/08/18 18:00 09/10/18 17:35 Zyloprim PO 150 mg QPM [place] Administration Buspirone HCl 7.5 mg 09/08/18 10:00 09/10/18 21:43 Buspar PO 7.5 mg BID [place] Administration Citalopram Hydrobromide 10 mg 09/08/18 18:00 09/10/18 09:27 Celexa PO 10 mg QDAY [place] Administration Dextrose 50 ml 09/07/18 23:16 D50w (25gm) Syringe IV PRN PRN Hypoglycemia Glimepiride 4 mg 09/08/18 08:00 09/10/18 09:29 Amaryl PO 4 mg QAMDIAB [place] Administration Insulin Human Lispro 0 unit 09/07/18 23:59 09/10/18 21:44 Humalog SUB-Q Not Given ACHS [place] Protocol Metoclopramide HCl 5 mg 09/08/18 10:00 09/10/18 21:43 Reglan PO 5 mg QID [place] Administration Metoprolol Succinate 25 mg 09/08/18 11:00 09/10/18 10:10 Toprol Xl PO Not Given DAILY [place] Mirtazapine 15 mg 09/08/18 22:00 09/10/18 21:43 Remeron PO 15 mg QHS [place] Administration Pravastatin Sodium 80 mg 09/08/18 22:00 09/10/18 21:44 Pravachol PO 80 mg QHS [place] Administration Warfarin Sodium 5 mg 09/08/18 17:00 09/10/18 17:35 Coumadin PO 5 mg DAILY@1700 [place] Administration
[2018-09-11 10:16] LABS: INR 1.96 (0.87-1.13)
[2018-09-11 10:31] LABS: Calcium 9.9 mg/dL (8.4-10.2)
[2018-09-11] MEDS: REGLAN PO SCH ×4 (11:06→21:23)
[2018-09-11] MEDS: BUSPAR PO SCH ×2 (11:08→21:22)
[2018-09-11] MEDS: AMARYL PO SCH (11:10)
[2018-09-11] MEDS: celeXA PO SCH (11:11)
[2018-09-11] MEDS: TOPROL XL PO SCH (11:12)
--- NOTE | 2018-09-11 11:39 | Ultrasound Report ---
ULTRASOUND RENAL INDICATION / CLINICAL INFORMATION: renal failure. COMPARISON: None available. FINDINGS: RIGHT KIDNEY: Length = 9.9 cm. [normal > 9 cm] - Parenchymal Thickness = 1.7 cm. [normal > 1.5 cm] - Echogenicity: Increased - Hydronephrosis: None. - Cyst or mass: No significant abnormality. - Stones: None seen. LEFT KIDNEY: Length = 12.2 cm. [normal > 9 cm] - Parenchymal Thickness = 0.7 cm. [normal > 1.5 cm] - Echogenicity: Increased - Hydronephrosis: None. - Cyst or mass: No significant abnormality. - Stones: None seen. URINARY BLADDER: No significant abnormality. FREE FLUID: None. ADDITIONAL FINDINGS: None. IMPRESSION: Normal size but slightly echogenic kidneys consistent with nonspecific renal parenchymal disease. No focal renal lesion or hydronephrosis. Signer Name: Magen Crenshaw Jr, MD Signed: 09/11/2018 11:35 AM Workstation Name: [id number]
[2018-09-11] MEDS: HumaLOG SUB-Q SCH ×4 (12:30→21:22)
[2018-09-11] MEDS: ZYLOPRIM PO SCH (19:07)
[2018-09-11] MEDS: COUMADIN PO SCH (19:08)
[2018-09-11] MEDS: PROAMATINE PO SCH ×2 (19:09→20:02)
[2018-09-11] MEDS: PRAVACHOL PO SCH (21:23)
[2018-09-11] MEDS: REMERON PO SCH (21:23)
[2018-09-11 22:25] LABS: Bilirubin,Urine NEG (Negative); Blood,Urine NEG (Negative); Color,Urine Straw (Yellow); Mucus,Urine FEW /HPF; Protein,Urine <15 mg/dL mg/dL (Negative); Sperm,Urine 2+ /HPF (NP); Urobilinogen,Urine < 2.0 mg/dL (<2.0); WBC,Urine < 1.0 /HPF (0.0-6.0)
--- NOTE | 2018-09-12 06:20 | Progress Note ---
Subjective Date of service: 09/11/18 Principal diagnosis: MDD Recurrent Severe Subjective Comment: No improvement. He is depressed, sluggish, withdrawn and not eating well. Multiple medication changes were made yesterday. He is compliant with his medications. No reported or observed side effects. Objective - Criteria for Continued Treatment Criteria for Continued Treatment: Improving Level of Functioning, Reducing Isolative Behaviors, Stablizing Level of Functioning, Improving Emotional/Socia - Mental Status Mental Status: Alert - Objective Observation Participation Level: Minimal Assessment and Plan - Patient Problems (1) MDD (major depressive disorder), single episode, severe , no psychosis Current Visit: Yes Status: Acute Plan to address problem: Patient will be admitted for inpatient psychiatric evaluation, medication adjustment and close monitoring The patient's behavior, mood, sleep and appetite will be closely monitored. Patient will be enrolled in individual and group therapeutic sessions and encouraged to attend. Patient will be provided with a safe and structured environment. Patient's physical health needs will be addressed by the Hospitalist. Social Assessment will be completed and the Television Announcer will work with patient and family to ensure a suitable and safe disposition Medication adjustment will be made as clinically indicated Increase Citalopram to 20mg qd (09/11) Continue Remeron 15mg qhs for depression, sleep and appetite (09/08) The patient agreed on the treatment plan, understood the risk, benefit, alternative treatment, potential consequence of no treatment, and gave informed consent.
[2018-09-12 07:10] LABS: INR 1.86 (0.87-1.13)
[2018-09-12 07:13] LABS: Calcium 9.8 mg/dL (8.4-10.2)
[2018-09-12] MEDS: HumaLOG SUB-Q SCH ×4 (07:58→22:00)
[2018-09-12] MEDS: AMARYL PO SCH (08:26)
[2018-09-12] MEDS: PROAMATINE PO SCH ×3 (08:26→20:00)
--- NOTE | 2018-09-12 08:57 | Progress Note ---
Subjective Date of service: 09/12/18 Principal diagnosis: MDD Recurrent Severe Subjective Comment: Patient reports slightly improved mood. He is still depressed, sluggish, withdrawn and not eating well. He is compliant with his medications. No reported or observed side effects. Objective - Criteria for Continued Treatment Criteria for Continued Treatment: Improving Level of Functioning, Reducing Isolative Behaviors, Stablizing Level of Functioning, Improving Emotional/Socia - Mental Status Mental Status: Alert - Objective Observation Participation Level: Minimal Assessment and Plan - Patient Problems (1) MDD (major depressive disorder), single episode, severe , no psychosis Current Visit: Yes Status: Acute Plan to address problem: Patient will be admitted for inpatient psychiatric evaluation, medication ad justment and close monitoring The patient's behavior, mood, sleep and appetite will be closely monitored. Patient will be enrolled in individual and group therapeutic sessions and encouraged to attend. Patient will be provided with a safe and structured environment. Patient's physical health needs will be addressed by the Hospitalist. Social Assessment will be completed and the K9 Handler will work with patient and family to ensure a suitable and safe disposition Medication adjustment will be made as clinically indicated Continue Citalopram to 20mg qd (09/11) Continue Remeron 15mg qhs for depression, sleep and appetite (09/08) The patient agreed on the treatment plan, understood the risk, benefit, alternative treatment, potential consequence of no treatment, and gave informed consent.
[2018-09-12] MEDS: BUSPAR PO SCH ×2 (10:24→22:03)
[2018-09-12] MEDS: REGLAN PO SCH ×4 (10:25→22:03)
[2018-09-12] MEDS: celeXA PO SCH (10:31)
--- NOTE | 2018-09-12 13:36 | Progress Note ---
Assessment and Plan 1. Acute kidney injury: CHANDAN superimposed on CKD in the setting of hypotension. Patient was recently evaluated for Cardio-renal syndrome. Currently he is not fluid overloaded and if anything he appears to be volume depleted. Hold diuretics and Lisinopril. Recent Renal US was negative for hydro. Renal function is improving. Monitor renal function. Renal prognosis is guarded. Avoid nephrotoxic agents. Meds dosage based on GFR. 2. FEN: Hyperkalemia, improved. Monitor lytes. 3. Systolic CHF: Appears compensated. Metoprolol was stopped due to symptomatic bradycardia. 4. Hypotension: BP is better with Midodrine. 5. Depression with suicidal ideation. Inpatient psychiatry unit. 6. DM type 2. Subjective Date of service: 09/12/18 Principal diagnosis: MDD Recurrent Severe Interval history: Patient was seen and examined at the bedside. No new complaint. Objective - Vital Signs Vital signs: Vital Signs - 12hr 09/12/18 09/12/18 08:56 10:00 Temperature 97.9 F 97.9 F Pulse Rate 85 85 Pulse Rate [ 85 85 Radial] Respiratory 16 16 Rate Blood Pressure 138/76 Blood Pressure 138/76 [Right] O2 Sat by Pulse 98 Oximetry - General Appearance General appearance: well-developed, appears stated age, other (no distress) EENT: ATNC, PERRL, hearing intact, vision intact Neck: supple Respiratory: Present: Clear to Ascultation Cardiology: regular, S1S2, no murmurs Gastrointestinal: normoactive bowel sounds, no tenderness, no distended Integumentary: no rash, warm and dry Neurologic: no focal deficit, no asterixis, alert and oriented x3 Musculoskeletal: other (no edema) Psychiatric: depressed - Lab 09/09/18 07:36 09/12/18 06:34 Most recent lab results Calcium 9.8 mg/dL (8.4-10.2) 09/12/18 06:34 Phosphorus 4.10 mg/dL (2.5-4.5) 09/12/18 06:34 Medications & Allergies - Medications Allergies/Adverse Reactions: Allergies No Known Allergies Allergy (Unverified 09/07/18 17:01) Home Medications: Home Medications Medication Instructions Recorded Confirmed Last Taken Type Allopurinol [Zyloprim] 0.5 mg PO QPM 09/07/18 09/07/18 Unknown History Furosemide [Lasix TAB] 40 mg PO DAILY 09/07/18 09/07/18 Unknown History Glimepiride [Amaryl] 4 mg PO DAILY 09/07/18 09/07/18 Unknown History Lisinopril [Zestril TAB] 10 mg PO DAILY 09/07/18 09/07/18 Unknown History Metoclopramide [Reglan TAB] 5 mg pe PO QID 09/07/18 09/07/18 Unknown History Metoprolol Xl [Metoprolol 25 mg PO DAILY 09/07/18 09/07/18 Unknown History SUCCINATE ER TAB] Simvastatin 40 mg PO DAILY 09/07/18 09/07/18 Unknown History Warfarin 5 mg PO DAILY 09/07/18 09/07/18 Unknown History busPIRone 7.5 mg PO BID 09/07/18 09/07/18 Unknown History metFORMIN 500 mg PO BID 09/07/18 09/07/18 Unknown History metOLazone [Metolazone] 10 mg pe PO DAILY 09/07/18 09/07/18 Unknown History Active Medications: Generic Name Dose Route Start Last Admin Trade Name Freq PRN Reason Stop Dose Admin Allopurinol 150 mg 09/08/18 18:00 09/11/18 19:07 Zyloprim PO 150 mg QPM [place] Administration Buspirone HCl 7.5 mg 09/08/18 10:00 09/12/18 10:24 Buspar PO 7.5 mg BID [place] Administration Citalopram Hydrobromide 20 mg 09/12/18 06:16 09/12/18 10:31 Celexa PO 20 mg QDAY [place] Administration Dextrose 50 ml 09/07/18 23:16 D50w (25gm) Syringe IV PRN PRN Hypoglycemia Glimepiride 4 mg 09/08/18 08:00 09/12/18 08:26 Amaryl PO 4 mg QAMDIAB [place] Administration Insulin Human Lispro 0 unit 09/07/18 23:59 09/12/18 12:21 Humalog SUB-Q 6 unit ACHS [place] Administration Protocol Metoclopramide HCl 5 mg 09/08/18 10:00 09/12/18 10:25 Reglan PO 5 mg QID [place] Administration Midodrine 10 mg 09/11/18 14:00 09/12/18 08:26 Proamatine PO 10 mg TID [place] Administration Mirtazapine 15 mg 09/08/18 22:00 09/11/18 21:23 Remeron PO 15 mg QHS [place] Administration Pravastatin Sodium 80 mg 09/08/18 22:00 09/11/18 21:23 Pravachol PO 80 mg QHS [place] Administration Warfarin Sodium 6 mg 09/12/18 17:00 Coumadin PO DAILY@1700 [place]
[2018-09-12] MEDS ORDERED: COUMADIN PO SCH (17:00)
[2018-09-12] MEDS: ZYLOPRIM PO SCH (17:39)
[2018-09-12] MEDS: REMERON PO SCH (22:02)
[2018-09-12] MEDS: PRAVACHOL PO SCH (22:06)
[2018-09-13] MEDS: PROAMATINE PO SCH ×3 (08:33→20:05)
[2018-09-13] MEDS: AMARYL PO SCH (08:33)
[2018-09-13] MEDS: HumaLOG SUB-Q SCH ×4 (08:50→21:17)
--- NOTE | 2018-09-13 09:24 | Progress Note ---
Subjective Date of service: 09/13/18 Principal diagnosis: MDD Recurrent Severe Subjective Comment: Patient reports improved mood. He denies SI/HI/AVH. He is compliant with his medications. No reported or observed side effects. Objective - Criteria for Continued Treatment Criteria for Continued Treatment: Stablizing Level of Functioning - Mental Status Mental Status: Alert - Objective Observation Participation Level: Moderate Assessment and Plan - Patient Problems (1) MDD (major depressive disorder), single episode, severe , no psychosis Current Visit: Yes Status: Acute Plan to address problem: Patient will be admitted for inpatient psychiatric evaluation, medication adjustment and close monitoring The patient's behavior, mood, sleep and appetite will be closely monitored. Patient will be enrolled in individual and group therapeutic sessions and encouraged to attend. Patient will be provided with a safe and structured environment. Patient's physical health needs will be addressed by the Hospitalist. Social Assessment will be completed and the Professor Of Economics will work with patient and family to ensure a suitable and safe disposition Medication adjustment will be made as clinically indicated Continue Citalopram to 20mg qd (09/11) Continue Remeron 15mg qhs for depression, sleep and appetite (09/08) The patient agreed on the treatment plan, understood the risk, benefit, alternative treatment, potential consequence of no treatment, and gave informed consent.
[2018-09-13] MEDS: REGLAN PO SCH ×4 (10:02→21:17)
[2018-09-13] MEDS: celeXA PO SCH (10:03)
[2018-09-13] MEDS: BUSPAR PO SCH ×2 (10:03→21:16)
--- NOTE | 2018-09-13 10:16 | Progress Note ---
Assessment and Plan 1. Acute kidney injury: CHANDAN superimposed on CKD in the setting of hypotension. Patient was recently evaluated for Cardio-renal syndrome. Recent Renal US was negative for hydro. Renal function is improving. Monitor renal function. Renal prognosis is guarded. Avoid nephrotoxic agents. Meds dosage based on GFR. 2. FEN: Hyperkalemia, a dose of kayexalate today. Monitor lytes. 3. Systolic CHF: Appears compensated. Metoprolol was stopped due to symptomatic bradycardia. 4. Hypotension: BP is better with Midodrine. 5. Depression with suicidal ideation. Inpatient psychiatry unit. 6. DM type 2. Subjective Date of service: 09/13/18 Principal diagnosis: MDD Recurrent Severe Interval history: Patient was seen and examined at the bedside. Doing better. Objective - General Appearance General appearance: well-developed, appears stated age, other (no distress) EENT: ATNC, PERRL, mucous membranes moist, hearing intact, vision intact Neck: supple Respiratory: Present: Clear to Ascultation Cardiology: regular, S1S2, no murmurs Gastrointestinal: normoactive bowel sounds, no tenderness, no distended Integumentary: no rash, warm and dry Neurologic: no focal deficit, no asterixis, alert and oriented x3 Musculoskeletal: other (no edema) Psychiatric: cooperative - Lab 09/09/18 07:36 09/13/18 10:04 Most recent lab results Calcium 9.8 mg/dL (8.4-10.2) 09/12/18 06:34 Phosphorus 4.10 mg/dL (2.5-4.5) 09/12/18 06:34 Medications & Allergies - Medications Allergies/Adverse Reactions: Allergies No Known Allergies Allergy (Unverified 09/07/18 17:01) Home Medications: Home Medications Medication Instructions Recorded Confirmed Last Taken Type Allopurinol [Zyloprim] 0.5 mg PO QPM 09/07/18 09/07/18 Unknown History Furosemide [Lasix TAB] 40 mg PO DAILY 09/07/18 09/07/18 Unknown History Glimepiride [Amaryl] 4 mg PO DAILY 09/07/18 09/07/18 Unknown History Lisinopril [Zestril TAB] 10 mg PO DAILY 09/07/18 09/07/18 Unknown History Metoclopramide [Reglan TAB] 5 mg pe PO QID 09/07/18 09/07/18 Unknown History Metoprolol Xl [Metoprolol 25 mg PO DAILY 09/07/18 09/07/18 Unknown History SUCCINATE ER TAB] Simvastatin 40 mg PO DAILY 09/07/18 09/07/18 Unknown History Warfarin 5 mg PO DAILY 09/07/18 09/07/18 Unknown History busPIRone 7.5 mg PO BID 09/07/18 09/07/18 Unknown History metFORMIN 500 mg PO BID 09/07/18 09/07/18 Unknown History metOLazone [Metolazone] 10 mg pe PO DAILY 09/07/18 09/07/18 Unknown History Active Medications: Generic Name Dose Route Start Last Admin Trade Name Freq PRN Reason Stop Dose Admin Allopurinol 150 mg 09/08/18 18:00 09/12/18 17:39 Zyloprim PO 150 mg QPM [place] Administration Buspirone HCl 7.5 mg 09/08/18 10:00 09/13/18 10:03 Buspar PO 7.5 mg BID [place] Administration Citalopram Hydrobromide 20 mg 09/12/18 06:16 09/13/18 10:03 Celexa PO 20 mg QDAY [place] Administration Dextrose 50 ml 09/07/18 23:16 D50w (25gm) Syringe IV PRN PRN Hypoglycemia Glimepiride 4 mg 09/08/18 08:00 09/13/18 08:33 Amaryl PO 4 mg QAMDIAB [place] Administration Insulin Human Lispro 0 unit 09/07/18 23:59 09/13/18 08:50 Humalog SUB-Q 6 unit ACHS [place] Administration Protocol Metoclopramide HCl 5 mg 09/08/18 10:00 09/13/18 10:02 Reglan PO 5 mg QID [place] Administration Midodrine 10 mg 09/11/18 14:00 09/13/18 08:33 Proamatine PO 10 mg TID [place] Administration Mirtazapine 15 mg 09/08/18 22:00 09/12/18 22:02 Remeron PO 15 mg QHS [place] Administration Pravastatin Sodium 80 mg 09/08/18 22:00 09/12/18 22:06 Pravachol PO 80 mg QHS [place] Administration Warfarin Sodium 6 mg 09/12/18 17:00 07/30/19 17:40 Coumadin PO 6 mg DAILY@1700 [place] Administration
[2018-09-13 11:20] LABS: INR 1.78 (0.87-1.13)
[2018-09-13 15:04] LABS: Calcium 10.4 mg/dL (8.4-10.2)
[2018-09-13] MEDS ORDERED: COUMADIN PO SCH (17:00)
[2018-09-13] MEDS: ZYLOPRIM PO SCH (20:04)
[2018-09-13] MEDS: REMERON PO SCH (21:16)
[2018-09-13] MEDS: PRAVACHOL PO SCH (21:16)
[2018-09-13] MEDS ORDERED: KIONEX PO ONE (22:00)
[2018-09-14 01:03] VITALS: BP 120/87
[2018-09-14 07:18] LABS: INR 1.89 (0.87-1.13)
[2018-09-14] MEDS: HumaLOG SUB-Q SCH ×2 (08:28→11:54)
[2018-09-14] MEDS: PROAMATINE PO SCH (08:32)
[2018-09-14] MEDS: AMARYL PO SCH (08:32)
--- NOTE | 2018-09-14 09:13 | Discharge Summary ---
Providers - Providers Date of Admission: 09/07/18 21:34 Date of discharge: 09/14/18 Attending physician: MARSHA UGALDE MD 09/07/18 17:02 Consult to Physician [CONS] Routine Comment: Consulting Provider: JUSTIN ANDREWS Physician Instructions: Reason For Exam: [facility]NAGEMENT 09/10/18 11:27 Consult to Physician [CONS] Routine Comment: Consulting Provider: SHALINI BERNSTEIN Physician Instructions: Reason For Exam: renal failure Hospitalization Reason for admission: depressed mood and suicidal thoughts Allergies/Adverse Reactions: Allergies No Known Allergies Allergy (Unverified 09/07/18 17:01) Vital Signs: Last Vital Signs Temp 97.7 F 09/13/18 22:00 Pulse 87 09/13/18 22:00 Resp 18 09/13/18 22:00 BP 120/87 09/13/18 22:00 Pulse Ox 97 09/13/18 22:00 Last Lab: Laboratory Last Values WBC 5.6 K/mm3 (4.5-11.0) 09/09/18 07:36 RBC 5.10 M/mm3 (3.65-5.03) H 09/09/18 07:36 Hgb 12.1 gm/dl (11.8-15.2) 09/09/18 07:36 Hct 37.8 % (35.5-45.6) 09/09/18 07:36 MCV 74 fl (84-94) L 09/09/18 07:36 MCH 24 pg (28-32) L 09/09/18 07:36 MCHC 32 % (32-34) 09/09/18 07:36 RDW 23.4 % (13.2-15.2) H 09/09/18 07:36 Plt Count 135 K/mm3 (140-440) L 09/09/18 07:36 Lymph % (Auto) 17.8 % (13.4-35.0) 09/09/18 07:36 [place] % (Auto) 7.8 % (0.0-7.3) H 09/09/18 07:36 Eos % (Auto) 1.2 % (0.0-4.3) 09/09/18 07:36 Baso % (Auto) 1.4 % (0.0-1.8) 09/09/18 07:36 Lymph # 1.0 K/mm3 (1.2-5.4) L 09/09/18 07:36 [place] # 0.4 K/mm3 (0.0-0.8) 09/09/18 07:36 Eos # 0.1 K/mm3 (0.0-0.4) 09/09/18 07:36 Baso # 0.1 K/mm3 (0.0-0.1) 09/09/18 07:36 Seg Neutrophils % 71.8 % (40.0-70.0) H 09/09/18 07:36 Seg Neutrophils # 4.0 K/mm3 (1.8-7.7) 09/09/18 07:36 PT 21.3 Sec. (12.2-14.9) H 09/14/18 06:35 INR 1.89 (0.87-1.13) H 09/14/18 06:35 APTT 32.0 Sec. (24.2-36.6) 09/08/18 07:25 Sodium 138 mmol/L (137-145) 09/14/18 06:35 Potassium 4.6 mmol/L (3.6-5.0) 09/14/18 06:35 Chloride 97.9 mmol/L (98-107) L 09/14/18 06:35 Carbon Dioxide 27 mmol/L (22-30) 09/14/18 06:35 18 mmol/L 09/14/18 06:35 BUN 65 mg/dL (9-20) H 09/14/18 06:35 1.8 mg/dL (0.8-1.5) H 09/14/18 06:35 Estimated GFR 40 ml/min 09/14/18 06:35 36 % 09/14/18 06:35 Glucose 167 mg/dL (75-100) H 09/14/18 06:35 POC Glucose 160 (70-105) H 09/14/18 06:46 7.3 % (4-6) H 09/09/18 05:03 Calcium 10.0 mg/dL (8.4-10.2) 09/14/18 06:35 Phosphorus 4.10 mg/dL (2.5-4.5) 09/12/18 06:34 0.30 mg/dL (0.1-1.2) 09/09/18 07:32 AST 20 units/L (5-40) 09/09/18 07:32 ALT 25 units/L (7-56) 09/09/18 07:32 85 units/L (35-129) 09/09/18 07:32 6.5 g/dL (6.3-8.2) 09/09/18 07:32 4.0 g/dL (3.9-5) 09/09/18 07:32 1.6 % 09/09/18 07:32 Triglycerides 65 mg/dL (2-149) 09/09/18 05:03 Cholesterol 133 mg/dL (50-199) 09/09/18 05:03 62 mg/dL (50-130) 09/09/18 05:03 62 mg/dL (40-59) H 09/09/18 05:03 2.14 % 09/09/18 05:03 PTH Intact 49.37 pg/mL (15-65) 09/11/18 08:50 Straw (Yellow) 09/11/18 21:20 Clear (Clear) 09/11/18 21:20 6.0 (5.0-7.0) 09/11/18 21:20 Ur Specific [place] 1.007 (1.003-1.030) 09/11/18 21:20 <15 mg/dl mg/dL (Negative) 09/11/18 21:20 >=500 mg/dL (Negative) 09/11/18 21:20 Neg mg/dL (Negative) 09/11/18 21:20 Neg (Negative) 09/11/18 21:20 Neg (Negative) 09/11/18 21:20 Neg (Negative) 09/11/18 21:20 < 2.0 mg/dL (<2.0) 09/11/18 21:20 Ur Leukocyte Esterase Neg (Negative) 09/11/18 21:20 < 1.0 /HPF (0.0-6.0) 09/11/18 21:20 2.0 /HPF (0.0-6.0) 09/11/18 21:20 U Epithel Cells (Auto) < 1.0 /HPF (0-13.0) 09/09/18 05:00 Hyaline Casts 52 /LPF 09/09/18 05:00 Few /HPF 09/11/18 21:20 2+ /HPF (LEAD PERFORMANCE SUPPORT ANALYST) 09/11/18 21:20 - Discharge Diagnoses (1) MDD (major depressive disorder), single episode, severe , no psychosis Status: Acute Core Measure Documentation - Palliative Care Palliative Care/ Comfort Measures: Not Applicable Exam - Constitutional Vitals: Temp Pulse Resp BP Pulse Ox 97.7 F 87 18 120/87 97 09/13/18 22:00 09/13/18 22:00 09/13/18 22:00 09/13/18 22:00 09/13/18 22:00 Plan Follow up with: TONY RICHARD [Other] - 7 Days Forms: Warfarin Discharge Instruction Prescriptions: Mirtazapine [Remeron 15mg TAB] 15 mg PO QHS 30 Days #30 tablet Glimepiride [Amaryl] 4 mg PO QAMDIAB #60 tablet Citalopram [celeXA] 20 mg PO QDAY #60 tablet Midodrine [Proamatine] 10 mg PO TID #90 tablet
[2018-09-14] MEDS: celeXA PO SCH (09:26)
[2018-09-14] MEDS: BUSPAR PO SCH (09:26)
[2018-09-14] MEDS: REGLAN PO SCH (09:26)
--- NOTE | 2018-09-14 09:27 | Progress Note ---
Assessment and Plan 1. Acute kidney injury: CHANDAN superimposed on CKD in the setting of hypotension. Patient was recently evaluated for Cardio-renal syndrome. Recent Renal US was negative for hydro. Renal function is better, likely at his baseline. Monitor renal function. Renal prognosis is guarded. Avoid nephrotoxic agents. Meds dosage based on GFR. 2. FEN: Hyperkalemia, improved. Low potassium diet discussed. 3. Systolic CHF: Appears compensated. Metoprolol was stopped due to symptomatic bradycardia. 4. Hypotension: Improved, continue Midodrine. 5. Depression with suicidal ideation. Inpatient psychiatry unit. 6. DM type 2. Patient is being discharged home today. Patient was advised to see his Psychiatric Registered Nurse and PCP in about a week. Also need to see Regional Business Manager as outpatient. Subjective Date of service: 09/14/18 Principal diagnosis: MDD Recurrent Severe Interval history: Patient was seen and examined at the bedside. Doing better. Objective - Vital Signs Vital signs: Vital Signs - 12hr 09/13/18 22:00 Temperature 97.7 F Pulse Rate 87 Respiratory 18 Rate Blood Pressure 120/87 [Right] O2 Sat by Pulse 97 Oximetry - General Appearance General appearance: well-developed, appears stated age, other (no distress) EENT: ATNC, PERRL, mucous membranes moist, hearing intact, vision intact Neck: supple Respiratory: Present: Clear to Ascultation Cardiology: regular, S1S2, no murmurs Gastrointestinal: normoactive bowel sounds, no tenderness, no distended Integumentary: no rash, warm and dry Neurologic: no focal deficit, no asterixis, alert and oriented x3 Musculoskeletal: other (no edema) Psychiatric: cooperative - Lab 09/09/18 07:36 09/14/18 06:35 Most recent lab results Calcium 10.0 mg/dL (8.4-10.2) 09/14/18 06:35 Phosphorus 4.10 mg/dL (2.5-4.5) 09/12/18 06:34 Medications & Allergies - Medications Allergies/Adverse Reactions: Allergies No Known Allergies Allergy (Unverified 09/07/18 17:01) Home Medications: Home Medications Medication Instructions Recorded Confirmed Last Taken Type Allopurinol [Zyloprim] 0.5 mg PO QPM 09/07/18 09/07/18 Unknown History Metoclopramide [Reglan TAB] 5 mg pe PO QID 09/07/18 09/07/18 Unknown History Simvastatin 40 mg PO DAILY 09/07/18 09/07/18 Unknown History Warfarin 5 mg PO DAILY 09/07/18 09/07/18 Unknown History busPIRone 7.5 mg PO BID 09/07/18 09/07/18 Unknown History Citalopram [celeXA] 20 mg PO QDAY #60 tablet 09/14/18 Unknown Rx Glimepiride [Amaryl] 4 mg PO QAMDIAB #60 tablet 09/14/18 Unknown Rx Midodrine [Proamatine] 10 mg PO TID #90 tablet 09/14/18 Unknown Rx Mirtazapine [Remeron 15mg TAB] 15 mg PO QHS 30 Days #30 tablet 09/14/18 Unknown Rx Active Medications: Generic Name Dose Route Start Last Admin Trade Name Freq PRN Reason Stop Dose Admin Allopurinol 150 mg 09/08/18 18:00 09/13/18 20:04 Zyloprim PO 150 mg QPM DE Administration Buspirone HCl 7.5 mg 09/08/18 10:00 09/14/18 09:26 Buspar PO 7.5 mg BID DE Administration Citalopram Hydrobromide 20 mg 09/12/18 06:16 09/14/18 09:26 Celexa PO 20 mg QDAY DE Administration Dextrose 50 ml 09/07/18 23:16 D50w (25gm) Syringe IV PRN PRN Hypoglycemia Glimepiride 4 mg 09/08/18 08:00 09/14/18 08:32 Amaryl PO 4 mg QAMDIAB DE Administration Insulin Human Lispro 0 unit 09/07/18 23:59 09/14/18 08:28 Humalog SUB-Q 3 unit ACHS DE Administration Protocol Metoclopramide HCl 5 mg 09/08/18 10:00 09/14/18 09:26 Reglan PO 5 mg QID DE Administration Midodrine 10 mg 09/11/18 14:00 09/14/18 08:32 Proamatine PO 10 mg TID DE Administration Mirtazapine 15 mg 09/08/18 22:00 09/13/18 21:16 Remeron PO 15 mg QHS DE Administration Pravastatin Sodium 80 mg 09/08/18 22:00 07/31/19 21:16 Pravachol PO 80 mg QHS DE Administration Warfarin Sodium 7.5 mg 09/13/18 17:00 09/13/18 20:02 Coumadin PO 7.5 mg DAILY@1700 DE Administration
== END 2018-09-14 13:19 | disposition home or self-care (01) | DRG 885 ==
LOC: UNDOADMIN 16:44 → 3A 16:44 → 5A 21:34
PROVIDERS: ADMIT Psychiatry & Neurology Psychiatry; ATTEND Psychiatry & Neurology Psychiatry
DX: F32.2 Major depressive disorder, single episode, severe without psychotic features (principal); I13.0 Hypertensive heart and chronic kidney disease with heart failure and stage 1 through stage 4 chronic kidney disease, or unspecified chronic kidney disease; I50.22 Chronic systolic (congestive) heart failure; N17.9 Acute kidney failure, unspecified; I25.10 Atherosclerotic heart disease of native coronary artery without angina pectoris; E87.5 Hyperkalemia; N18.3 Chronic kidney disease, stage 3 (moderate); E11.22 Type 2 diabetes mellitus with diabetic chronic kidney disease; E11.319 Type 2 diabetes mellitus with unspecified diabetic retinopathy without macular edema; M10.9 Gout, unspecified; E78.5 Hyperlipidemia, unspecified; I95.89 Other hypotension; Z86.73 Personal history of transient ischemic attack (TIA), and cerebral infarction without residual deficits; Z82.49 Family history of ischemic heart disease and other diseases of the circulatory system; Z95.810 Presence of automatic (implantable) cardiac defibrillator; I25.2 Old myocardial infarction; Z95.5 Presence of coronary angioplasty implant and graft; Z79.84 Long term (current) use of oral hypoglycemic drugs
CPT/HCPCS: 36415; 76770; 80048; 80053; 80061; 81001; 82962; 83036; 83970; 84100; 85025; 85610; 85730; 93005; 93010; G0378; A9270-GY; J1815